=== PATIENT | female | born 1950 | race Hispanic/Latino ===

== ENCOUNTER 2020-07-31 06:47 | Observation (INO) | payer MEDICARE ==
[2020-07-31] MEDS ORDERED: ASPIRIN EC 325 MG TAB PO NR (07:19)
[2020-07-31 07:47] LABS: Basophils % (Auto) 0.8 % (0.0-1.8); Eosinophils # (Auto) 0.3 K/mm3 (0.0-0.4); Eosinophils % (Auto) 5.5 % (0.0-4.3); Hematocrit 40.8 % (30.3-42.9); Hemoglobin 13.2 gm/dl (10.1-14.3); Lymphocytes # (Auto) 1.7 K/mm3 (1.2-5.4); Lymphocytes % (Auto) 27.7 % (13.4-35.0); Mean Corpuscular HGB Conc 32 % (30-34); Mean Corpuscular Volume 86 fl (79-97); Monocytes # (Auto) 0.5 K/mm3 (0.0-0.8); Monocytes % (Auto) 8.7 % (0.0-7.3); Platelet Count 211 K/mm3 (140-440); Red Blood Count 4.76 M/mm3 (3.65-5.03); Red Cell Distribution Width 16.5 % (13.2-15.2)
[2020-07-31 07:56] LABS: INR 1.02 (0.87-1.13)
[2020-07-31 07:57] LABS: Calcium 9.2 mg/dL (8.4-10.2); Partial Thromboplastin Time 37.4 Sec. (24.2-36.6)
[2020-07-31] MEDS ORDERED: SODIUM CHLORIDE 0.9% 500 ML 500 ML IV SCH (08:00)
[2020-07-31] MEDS ORDERED: HEPARIN 10,000 UNITS/10 ML VIAL ONE (08:14)
[2020-07-31] MEDS ORDERED: HEPARIN/NS 5000 UNIT/500ML 1,000 ML IR ONE (08:14)
[2020-07-31] MEDS ORDERED: MIDAZOLAM 2 MG/2 ML INJ ONE (08:15)
[2020-07-31] MEDS ORDERED: VERAPAMIL 5 MG/2 ML INJ ONE (08:15)
[2020-07-31] MEDS ORDERED: LIDOCAINE (2%) 20 MG/1 ML VIAL 20 ML MDV INFILTRATI ONE ×2 (08:15→09:01)
[2020-07-31] MEDS ORDERED: fentaNYL 100 MCG/2 ML INJ ONE (08:15)
[2020-07-31] MEDS ORDERED: MIDAZOLAM 2 MG/2 ML INJ IV ONE (08:58)
[2020-07-31] MEDS ORDERED: fentaNYL 100 MCG/2 ML INJ IV ONE (08:58)
[2020-07-31] MEDS ORDERED: NITROGLYCERIN 600 MCG/3 ML SYRINGE ART-SHEATH ONE ×2 (09:04→09:29)
[2020-07-31] MEDS ORDERED: HEPARIN 10,000 UNITS/10 ML VIAL ART-SHEATH ONE (09:04)
[2020-07-31] MEDS ORDERED: VERAPAMIL 5 MG/2 ML INJ ART-SHEATH ONE (09:04)
[2020-07-31] MEDS ORDERED: HEPARIN 10,000 UNITS/10 ML VIAL IV ONE (09:15)
[2020-07-31] MEDS ORDERED: CLOPIDOGREL 300 MG TAB ONE (09:29)
[2020-07-31] MEDS ORDERED: ALUM-MAG HYDROXIDE-SIMETHICONE 200-200-20MG/5ML ORAL LIQD 30 ML ONE (09:30)
[2020-07-31] MEDS ORDERED: ALUM-MAG HYDROXIDE-SIMETHICONE 200-200-20MG/5ML ORAL LIQD 30 ML PO ONE (09:32)
[2020-07-31] MEDS ORDERED: CLOPIDOGREL 300 MG TAB PO ONE (09:32)
--- NOTE | 2020-07-31 10:19 | Cardiac Catherization Report ---
INDICATION FOR PROCEDURE: The patient is a pleasant 69-year-old female who is referred by Dr. Mujica. She has a history of recent new cardiomyopathy, is having shortness of breath with exertion. No syncope or presyncope. Denies palpitations. Given new severe cardiomyopathy, she is referred here for left heart catheterization. Risks, benefits, and alternatives discussed at length prior to obtaining informed consent. PROCEDURE IN DETAIL: The patient was brought to the catheterization lab in a postabsorptive state, prepped and draped in sterile fashion. Lc's test in right hand was normal. A 2 mL of 2% lidocaine used to anesthetize the right wrist. A standard 6-[place] hydrophilic sheath used to cannulate the right radial artery via modified Seldinger technique. All exchanges performed to exchange a J-tip guidewire. JL3.5 catheter was used to engage the left main. No dampening or ventricularization. Cineangiography performed in all projections. JR4 catheter was used to cross the aortic valve under fluoroscopic guidance. Left ventriculography performed in 30 FIGUEROA and 30 UPPER SORBIAN projections via hand injections, catheter flushed. Manual pullback performed with continuous pressure monitoring. Catheter used to engage the right coronary. No dampening or ventricularization. Cineangiography performed in all projections. DATA: Aortic pressure is 150/70. LV pressure is 150, LVP of 20 mmHg. Left ventriculography reveals [id number] global left ventricular hypokinesis, estimated ejection fraction of 35-40%, no evidence of aortic stenosis. CORONARY ANATOMY: This is a codominant system. There appears to be a 90% stenosis in the mid right coronary, which is a smaller vessel. Furthermore, the left main is without significant disease, bifurcates left anterior descending and left circumflex, no significant left main disease. Left circumflex is codominant, no significant disease identified. LAD is a moderate-sized vessel, courses anterior intergroove, wraps around the apex. There are tandem 90% stenoses in the mid LAD. The patient developed EKG changes and chest pain during angiography, I believe there were multiple culprits here. We thus decided to proceed with PCI of LAD. EBU 3.5 guide used to engage left main without difficulty. Aspirin, Plavix and heparin loaded. Abnormal ACT was confirmed. A [place] wire used to cross the LAD without difficulty. We direct stented the more distal mid LAD lesion with a 2.75 x 12 drug-eluting stent, Resolute [place] deployed at 12 MALLORY for 30 seconds. Next, we used a 2.75 x 8 [place] for the more proximal lesion deployed at 12 MALLORY for 30 seconds. Excellent final angiographic result. Intravascular ultrasound reveals a well-opposed and well-expanded stents. No complications, no dissection. The patient tolerated the procedure well, no immediate complications were identified. We will stage the RCA for tomorrow. I directly supervised the administration of moderate sedation with Versed and fentanyl from 8:58 a.m. to 9:40 a.m. No immediate complications identified. CONCLUSIONS: 1. Significant 2-vessel coronary artery disease with ST changes and chest pain during angiography. Successful PCI of tandem 90% mid LAD stenoses with ELIANE x 2 (Resolute 2.75 x 12, Resolute [place] 2.75 x 8), excellent final angiographic and ultrasonographic results. 2. A 90% mid RCA. 3. Eapqkryp-ju-iwaruc global left ventricular hypokinesis, estimated ejection fraction of 35-40%. 4. No evidence of aortic stenosis. 5. Mildly elevated LVEDP. The patient is clinically stable at this time. We will schedule for staged PCI of her 90% mid right coronary, watch her overnight. Results of procedure explained to the patient and her daughter via telephone. All questions were addressed. JOB# [id number] PARTH/SHERIE
[2020-07-31] MEDS ORDERED: HYDROcodone/ACETAMINOPHEN 5-325 MG TAB PO PRN (11:00)
[2020-07-31] MEDS: NITROGLYCERIN SYRINGE 3 ML ONE (13:16)
[2020-07-31] MEDS: carvediloL 6.25 MG TAB PO SCH ×2 (13:28→21:30)
[2020-08-01 03:34] LABS: Basophils % (Auto) 0.3 % (0.0-1.8); Eosinophils # (Auto) 0.1 K/mm3 (0.0-0.4); Hematocrit 39.1 % (30.3-42.9); Hemoglobin 12.4 gm/dl (10.1-14.3); Lymphocytes # (Auto) 1.3 K/mm3 (1.2-5.4); Lymphocytes % (Auto) 18.7 % (13.4-35.0); Mean Corpuscular HGB Conc 32 % (30-34); Mean Corpuscular Volume 85 fl (79-97); Monocytes # (Auto) 0.5 K/mm3 (0.0-0.8); Monocytes % (Auto) 7.6 % (0.0-7.3); Platelet Count 193 K/mm3 (140-440); Red Blood Count 4.59 M/mm3 (3.65-5.03); Red Cell Distribution Width 16.8 % (13.2-15.2)
[2020-08-01 03:58] LABS: Creatine Kinase MB 1.7 ng/mL (0.0-4.0)
[2020-08-01 03:59] LABS: Alanine Aminotransferase 11 units/L (7-56); Albumin 3.4 g/dL (3.9-5); BUN/Creatinine Ratio 16; Blood Urea Nitrogen 14 mg/dL (7-17); Calcium 8.8 mg/dL (8.4-10.2); Hemolysis Index 6
[2020-08-01] MEDS ORDERED: CLOPIDOGREL 75 MG TAB ONE (07:14)
[2020-08-01] MEDS ORDERED: ASPIRIN EC 325 MG TAB PO ONE (07:14)
[2020-08-01] MEDS ORDERED: SODIUM CHLORIDE 0.9% 500 ML 500 ML ONE (07:14)
[2020-08-01] MEDS: CLOPIDOGREL 75 MG TAB PO SCH ×2 (07:20→12:33)
[2020-08-01] MEDS: ASPIRIN EC 325 MG TAB PO SCH ×2 (07:20→11:12)
[2020-08-01] MEDS ORDERED: SODIUM CHLORIDE 0.9% 500 ML 500 ML IV SCH (08:00)
[2020-08-01] MEDS ORDERED: VERAPAMIL 5 MG/2 ML INJ ONE (08:13)
[2020-08-01] MEDS ORDERED: NITROGLYCERIN SYRINGE 3 ML ONE (08:13)
[2020-08-01] MEDS ORDERED: HEPARIN/NS 5000 UNIT/500ML 1,000 ML IR ONE (08:13)
[2020-08-01] MEDS: MIDAZOLAM 2 MG/2 ML INJ ONE ×2 (08:49→09:09)
[2020-08-01] MEDS: fentaNYL 100 MCG/2 ML INJ ONE ×2 (08:49→09:09)
[2020-08-01] MEDS: HEPARIN 10,000 UNITS/10 ML VIAL ONE ×3 (08:50→09:31)
[2020-08-01] MEDS: LIDOCAINE (2%) 20 MG/1 ML VIAL 20 ML MDV INFILTRATI ONE ×2 (08:50→09:24)
[2020-08-01] MEDS ORDERED: LIDOCAINE PF 100 MG/5 ML (CARDIAC SYRINGE) IV ONE (09:14)
[2020-08-01] MEDS ORDERED: EPINEPHrine 1 MG/10 ML SYRINGE ONE (09:14)
[2020-08-01] MEDS ORDERED: ATROPINE 0.1% (1 MG/10 ML) CARDIAC SYRINGE ONE (09:14)
[2020-08-01] MEDS ORDERED: PHENYLEPHRINE/NS 1,000 MCG/10 ML SYRINGE (OR USE) IV ONE (09:14)
[2020-08-01] MEDS: NITROGLYCERIN SYRINGE 3 ML ONE (09:27)
[2020-08-01] MEDS: LOSARTAN 25 MG TAB PO SCH (11:11)
[2020-08-01] MEDS: carvediloL 6.25 MG TAB PO SCH ×2 (11:11→22:31)
--- NOTE | 2020-08-01 11:34 | Progress Note ---
Assessment and Plan s/p C with PCI of LAD x 2 yesterday and PCI of RCA via RRA today, EF 35-40%. Currently stable cardiac status. Cont present cardiac management. Anticipate d/c in AM. Of note, bradycardia with HR 40s is being documented on VS flowsheet. However, review of telemetry shows SR HR 57-60s with freq PACs. Cont to monitor. The patient has been seen in conjunction with Dr. Jennifer Molina who agrees with the assessment and plan of care. - Patient Problems (1) CAD (coronary artery disease) Current Visit: Yes Status: Chronic (2) Stented coronary artery Current Visit: Yes Status: Chronic (3) Cardiomyopathy Current Visit: Yes Status: Chronic (4) HTN (hypertension) Current Visit: Yes Status: Chronic (5) Hyperlipidemia Current Visit: Yes Status: Chronic Subjective Date of service: 08/01/20 Principal diagnosis: CAD Interval history: pt resting in bed, no current complaints. for staged PCI today. tele reviewed - in SR HR 57-60s with freq PACs. Objective Last Vital Signs Temp 97.7 F 08/01/20 04:16 Pulse 43 L 08/01/20 11:13 Resp 18 08/01/20 11:13 BP 106/47 08/01/20 11:13 Pulse Ox 93 08/01/20 11:13 - Physical Examination General: No Apparent Distress HEENT: Positive: PERRL, Normocephaly, Mucus Membranes Moist Neck: Positive: neck supple, trachea midline Cardiac: Positive: Reg Rate and Rhythm, S1/S2 Lungs: Positive: Decreased Breath Sounds Neuro: Positive: Grossly Intact Abdomen: Negative: Tender Skin: Negative: Rash Extremities: Absent: edema - Labs and Meds Cardiac Enzymes 08/01/20 Range/Units 03:19 AST 16 (5-40) units/L CK-MB (CK-2) 1.7 (0.0-4.0) ng/mL CBC 08/01/20 Range/Units 03:19 WBC 7.1 (4.5-11.0) K/mm3 RBC 4.59 (3.65-5.03) M/mm3 Hgb 12.4 (10.1-14.3) gm/dl Hct 39.1 (30.3-42.9) % Plt Count 193 (140-440) K/mm3 Lymph # (Auto) 1.3 (1.2-5.4) K/mm3 [place] # (Auto) 0.5 (0.0-0.8) K/mm3 Eos # (Auto) 0.1 (0.0-0.4) K/mm3 Baso # (Auto) 0.0 (0.0-0.1) K/mm3 Comprehensive Metabolic Panel 08/01/20 Range/Units 03:19 Sodium 136 L (137-145) mmol/L Potassium 4.5 (3.6-5.0) mmol/L Chloride 101.7 (98-107) mmol/L Carbon Dioxide 27 (22-30) mmol/L BUN 14 (7-17) mg/dL Creatinine 0.9 (0.6-1.2) mg/dL Glucose 119 H (65-100) mg/dL Calcium 8.8 (8.4-10.2) mg/dL AST 16 (5-40) units/L ALT 11 (7-56) units/L Alkaline Phosphatase 77 (35-129) units/L Total Protein 6.1 L (6.3-8.2) g/dL Albumin 3.4 L (3.9-5) g/dL - Imaging and Cardiology EKG: report reviewed, image reviewed - Telemetry EKG Rhythm: Sinus Rhythm
--- NOTE | 2020-08-01 12:02 | Cardiac Catherization Report ---
CARDIAC CATHETERIZATION INDICATION FOR PROCEDURE: The patient is here for elective staged PCI of RCA. The patient underwent left heart catheterization yesterday due to cardiomyopathy, found to have culprit LAD and RCA lesions with chest pain with angiography. Underwent PCI of LAD x 2 yesterday successfully here for staged PCI of RCA. Risks, benefits, alternatives discussed at length prior to obtaining informed consent. PROCEDURE IN DETAIL: The patient was seen by collaborative physician in a post-absorptive state, prepped and draped in sterile fashion. Lc's test in right hand was normal. A 2 mL of 2% lidocaine used to anesthetize the right wrist. A standard 6-[place] hydrophilic sheath used to cannulate the right radial artery via modified Seldinger technique. All exchanges performed to exchange a J-tip guidewire. JL3.5 catheter used to engage the left main, no dampening or ventricularization. Cineangiography performed in all projections. The left system is unchanged from the last picture from yesterday. The stents in the LAD are patent. Left main ____ disease. At this point, we turned our attention to PCI. Heparin given. The patient reloaded with aspirin and Plavix. We used a JR4 guide with side holes. A [place] wire to cross the lesion without difficulty. We used a 2.0 x 30 [place] drug-eluting stent. There is a long 90% stenosis in the mid segment. This is a codominant system, deployed at 12 MALLORY for 30 seconds. Excellent angiographic result. Intravascular ultrasound reveals a well opposed, well expanded stent, only mild disease proximally. No dissection. JAIME 3 flow. The patient is clinically stable. Procedure was completed. I directly supervised the administration of moderate sedation with Versed and fentanyl from 9:09 a.m. to 9:52 a.m. No immediate complications identified. CONCLUSIONS: 1. Successful staged PCI of RCA with placement of drug-eluting stent ([place] 2.0 x 30) 90% initial stenosis with 0% residual stenosis, JAIME 2 to JAIME 3 flow, excellent final angiographic and ultrasonographic results. 2. Patent LAD stents. At this point, continue aspirin, Plavix, statin therapy. Continue carvedilol, standard radial care, likely discharge in a.m. ____ procedure were reviewed with the patient. Stable cardiac status. [facility]# [id number] PARTH/SHERIE
[2020-08-02 05:37] LABS: Basophils % (Auto) 0.5 % (0.0-1.8); Eosinophils # (Auto) 0.1 K/mm3 (0.0-0.4); Eosinophils % (Auto) 1.8 % (0.0-4.3); Hematocrit 39.9 % (30.3-42.9); Hemoglobin 13.1 gm/dl (10.1-14.3); Lymphocytes # (Auto) 1.9 K/mm3 (1.2-5.4); Lymphocytes % (Auto) 27.1 % (13.4-35.0); Mean Corpuscular HGB Conc 33 % (30-34); Mean Corpuscular Volume 86 fl (79-97); Monocytes # (Auto) 0.6 K/mm3 (0.0-0.8); Monocytes % (Auto) 8.7 % (0.0-7.3); Platelet Count 189 K/mm3 (140-440); Red Blood Count 4.67 M/mm3 (3.65-5.03); Red Cell Distribution Width 16.7 % (13.2-15.2)
[2020-08-02 05:54] LABS: Creatine Kinase MB 1.9 ng/mL (0.0-4.0)
[2020-08-02 05:58] LABS: BUN/Creatinine Ratio 17; Blood Urea Nitrogen 15 mg/dL (7-17); Calcium 8.9 mg/dL (8.4-10.2); Hemolysis Index 4
[2020-08-02 06:13] LABS: Chol/HDL Ratio 3.54 %; HDL Cholesterol 50 mg/dL (40-59); LDL Cholesterol,Direct 128 mg/dL (50-130)
[2020-08-02 08:43] VITALS: BP 135/72
[2020-08-02] MEDS: LOSARTAN 25 MG TAB PO SCH (09:59)
[2020-08-02] MEDS: carvediloL 6.25 MG TAB PO SCH (09:59)
[2020-08-02] MEDS: CLOPIDOGREL 75 MG TAB PO SCH (09:59)
[2020-08-02] MEDS: ASPIRIN EC 325 MG TAB PO SCH (09:59)
--- NOTE | 2020-08-02 10:45 | Short Stay Summary ---
Short Stay Documentation Date of service: 08/02/20 - History H&P: obtained from office - Allergies and Medications Current Medications: Allergies No Known Allergies Allergy (Verified 07/31/20 07:19) Home Medications Medication Instructions Recorded Confirmed Last Taken Type Losartan [Cozaar] 25 mg PO QDAY 07/31/20 07/31/20 07/30/20 History Spironolactone [Aldactone] 25 mg PO QDAY 07/31/20 07/31/20 07/30/20 History carvediloL [Coreg] 6.25 mg PO BID 07/31/20 07/31/20 07/30/20 History Active Medications Hydrocodone Bitart/Acetaminophen (Hydrocodone/Acetaminophen 5-325 Mg Tab) 1 each PO Q6H PRN PRN Reason: Pain, Moderate (4-6) Aspirin (Aspirin Ec 325 Mg Tab) 325 mg PO QDAY [facility] Last Admin: 08/02/20 09:59 Dose: 325 mg Documented by: Atorvastatin Calcium (Atorvastatin 40 Mg Tab) 40 mg PO QHS [facility] Last Admin: 08/01/20 22:31 Dose: 40 mg Documented by: Carvedilol (Carvedilol 6.25 Mg Tab) 6.25 mg PO BID [facility] Last Admin: 08/02/20 09:59 Dose: 6.25 mg Documented by: Clopidogrel Bisulfate (Clopidogrel 75 Mg Tab) 75 mg PO QDAY [facility] Last Admin: 08/02/20 09:59 Dose: 75 mg Documented by: Sodium Chloride (Nacl 0.9% 500 Ml) 500 mls @ 50 mls/hr IV DIRECT [facility] Last Admin: 08/01/20 07:37 Dose: 50 mls/hr Documented by: Losartan Potassium (Losartan 25 Mg Tab) 25 mg PO QDAY [facility] Last Admin: 08/02/20 09:59 Dose: 25 mg Documented by: - Physical exam General appearance: no acute distress Integumentary: no rash, no growths, no abnormal pigmentation, other ([facility] site c/d/i, no bleeding or hematoma noted) HEENT: Atraumatic, PERRLA, EOMI Lungs: Clear to auscultation Heart: Regular rate, Normal S1, Normal S2 Gastrointestinal: normal, normoactive bowel sounds Extremities: no ischemia, pulses intact, pulses symmetrical Neurological: Normal gait, Normal speech, Strength at 5/5 X4 ext - Brief post op/procedure progress note Date of procedure: 08/01/20 Pre-op diagnosis: CMP Post-op diagnosis: other (CAD; CMP) Procedure: C with PCI - see dictated cath reports Anesthesia: local Estimated blood loss: none Condition: stable - Disposition Condition at discharge: Good Disposition: [id number] TO HOME OR SELFCARE - Discharge Diagnoses (1) CAD (coronary artery disease) Status: Chronic (2) Stented coronary artery Status: Chronic (3) Cardiomyopathy Status: Chronic (4) HTN (hypertension) Status: Chronic (5) Hyperlipidemia Status: Chronic Short Stay Discharge Plan Activity: advance as tolerated Diet: low fat, low cholesterol, low salt Wound: open to air, keep clean and dry, per your surgeon's advice Follow up with: CHIKIS PERALES MD [Primary Care Provider] - 7 Days OANH OROURKE MD [Staff Physician] - 7 Days ([facility] office, 08/21/2020 @ 2:45PM) Prescriptions: AtorvaSTATin [Lipitor] 40 mg PO QHS #90 tablet Clopidogrel [Plavix] 75 mg PO QDAY #90 tablet
--- NOTE | 2020-08-02 17:10 | XRay Report ---
CHEST 1 VIEW 08/02/2020 3:00 PM INDICATION / CLINICAL INFORMATION: post pci. COMPARISON: None available. FINDINGS: SUPPORT DEVICES: None. HEART / MEDIASTINUM: No significant abnormality. LUNGS / PLEURA: No significant pulmonary or pleural abnormality. No pneumothorax. ADDITIONAL FINDINGS: No significant additional findings. IMPRESSION: 1. No acute findings. Signer Name: Jose Wright MD Signed: 08/02/2020 5:06 PM Workstation Name: [id number]
== END 2020-08-02 13:21 | disposition home or self-care (01) ==
LOC: CATHLABREC 06:47 → 4A 10:31
PROVIDERS: ADMIT Internal Medicine; ATTEND Internal Medicine
DX: I25.10 Atherosclerotic heart disease of native coronary artery without angina pectoris (principal); I42.9 Cardiomyopathy, unspecified; I10 Essential (primary) hypertension; E78.5 Hyperlipidemia, unspecified; Z95.1 Presence of aortocoronary bypass graft; Z79.82 Long term (current) use of aspirin; Z79.899 Other long term (current) drug therapy
CPT/HCPCS: 36415; 71045; 80048; 80053; 80061; 82550; 82553; 84484; 85025; 85347; 85610; 85730; 92978; 93005; 93458; A9270; C1753; C1769; C1874; C1887; C1894; C9600; G0378; J1644; J2250; J3010; J7040; 92928; J0171; J0461; J2001; J2370; Q9967